=== PATIENT | female | born 1955 | race Caucasian/White ===

== ENCOUNTER → 2019-05-19 | Day surgery (SDC) | payer MEDICARE ==
[2019-05-14 11:42] LABS: BASOPHILS # (AUTO) 0.1 (0.0-0.1); EOSINOPHILS # (AUTO) 0.5 (0.0-0.4); EOSINOPHILS % 4.1 % (0.0-6.0); HEMATOCRIT 37.2 % (34.2-44.1); HEMOGLOBIN 11.6 g/dL (12.0-16.0); LYMPHOCYTES # (AUTO) 2.8 (1.0-3.2); LYMPHOCYTES % 24.8 % (18.0-39.1); MEAN CORPUSCULAR HEMOGLOBIN 28.8 pg (28-32); MEAN CORPUSCULAR HGB CONC 31.2 g/dL (31-35); MEAN CORPUSCULAR VOLUME 92.3 fL (81-99); MONOCYTES # (AUTO) 0.8 (0.2-0.8); MONOCYTES % 7.5 % (4.4-11.3); NEUTROPHILS # (AUTO) 6.9 (2.1-6.9); NEUTROPHILS % 62.2 % (38.7-80.0); PLATELET COUNT 335 x10e3/uL (140-360); RED BLOOD COUNT 4.03 x10e6/uL (3.6-5.1); RED CELL DISTRIBUTION WIDTH 13.5 % (11.7-14.4)
[2019-05-14 11:59] LABS: ANION GAP 19.8 mmol/L (8-16); BLOOD UREA NITROGEN 17 mg/dL (7-26); BUN/CREATININE RATIO 19 (6-25); CALCIUM 10.2 mg/dL (8.4-10.2); CARBON DIOXIDE 21 mmol/L (22-29); CHLORIDE 100 mmol/L (98-107); CREATININE, SERUM 0.89 mg/dL (0.57-1.11); EST GLOMERULAR FILTRATION RATE > 60 ML/MIN (60-); GLUCOSE 203 mg/dL (74-118); POTASSIUM 3.8 mmol/L (3.5-5.1); SODIUM 137 mmol/L (136-145)
--- NOTE | 2019-05-14 12:24 | Diagnostic Imaging Report ---
Chest, 2 views, 05/14/2019. History: Preop, kidney stones. Comparison: 04/07/2019. Findings: The cardiomediastinal silhouette and pulmonary vasculature are within normal limits. The lungs are clear without evidence of consolidation or pleural effusion. Degenerative changes are present within the thoracic spine. There are no acute osseous or soft tissue abnormalities. Impression: No acute cardiopulmonary abnormality. Signed by: Keagan Moran on 05/14/2019 12:21 PM
--- NOTE | 2019-05-14 12:48 | Diagnostic Imaging Report ---
Abdomen, 1 view. History: Preop, kidney stones. Comparison: CT 04/03/2019. Findings: Air is scattered throughout nondilated small and large bowel. Bilateral renal calculi are identified, measuring up to 1.4 cm on the right and 1.7 cm on the left. Bilateral internal ureteral stents are present. The osseous structures are intact. IMPRESSION: Bilateral renal calculi. Signed by: Keagan Moran on 05/14/2019 12:45 PM
[~2019-05-19] MED LIST: AMLODIPINE BESYL5 MG PO; ASPIRIN81 MG; AZO BLADDER CO300 MG PO; BACTRIM DS TAB1 EACH PO; BUPROPION HCL150 MG PO; CEFTRIAXONE SOD 1 GM/NS 50 ML 50 ML IV ONE; CIPRO500 MG PO; CRESTOR10 MG; FENTANYL CITRATE/PF 100MCG/2 ML INJ ONE; FLOMAX0.4 MG PO; LOSARTAN-HCTZ1 EAC1 PO; METFORMIN HCL1000 MG; METOPROLOL TART25 MG PO; NORCO 5-325 TA1 EACH PO; ONDANSETRON HCL INJ 2MG/ML 2ML 2 MG/ML VIAL ONE; OXYBUTYNIN CHLOR5 M1 PO; SERTRALINE HCL50 MG PO; SEVOFLURANE INHAL SOLN 250 ML PEN BTL ONE; TESSALON PERLE100 MG PO; TOUJEO SOL300 UNIT/1 SQ; TRAZODONE HCL50 MG PO; TYLENOL WITH C1 EACH PO; ZITHROMAX500 MG PO
[2019-05-19 09:59] VITALS: BP 155/80
--- NOTE | 2019-05-19 11:22 | Operative Report ---
DATE OF PROCEDURE: 05/19/2019 SURGEON: Jean Hussein MD PREOPERATIVE DIAGNOSIS: Bilateral nephrolithiasis. POSTOPERATIVE DIAGNOSIS: Bilateral nephrolithiasis. OPERATIONS PERFORMED: 1. Staged right-sided extracorporeal shockwave lithotripsy. 2. Supervision of fluoroscopy, no radiologist present. ANESTHESIA: General. COMPLICATIONS: None. CLINICAL SUMMARY: Shannan Lockwood is a 63-year-old woman with bilateral nephrolithiasis. She has bilateral indwelling ureteral stents. She was brought for a staged procedure. She is aware of the risks of bleeding, infection, injury to adjacent structures, need for additional procedures and elected to proceed. OPERATIVE PROCEDURE IN DETAIL: Informed consent was verified. Shannan Lockwood was properly identified, taken to the operating room, and placed on the lithotripsy table in supine position. Anesthesia was uneventfully begun. The patient's right lower pole cluster of nephrolithiasis was localized with biplanar fluoroscopy. A total of 3000 shocks were delivered with fragmentation noted. The patient was then uneventfully reversed from anesthesia and taken to recovery room in stable condition. There were no complications to the procedure. She tolerated the procedure well. PLANS: Plans will be to return the patient to the operating room in several weeks for a left ESWL. The patient eventually, when her stone burden has decreased, will require bilateral ureteroscopy with removal of stent. Once the patient is rendered stent free and stone free, metabolic stone workup will be pursued as well as ongoing stone prevention management. Jean Hussein MD [place]/MODL /[id number]
== END | disposition home or self-care (01) ==
LOC: OR 05:21
PROVIDERS: ATTEND Urology
DX: N20.0 Calculus of kidney (principal); Z96.0 Presence of urogenital implants; E11.9 Type 2 diabetes mellitus without complications; I10 Essential (primary) hypertension; E78.5 Hyperlipidemia, unspecified; Z01.812 Encounter for preprocedural laboratory examination; Z01.818 Encounter for other preprocedural examination; Z79.4 Long term (current) use of insulin; Z79.84 Long term (current) use of oral hypoglycemic drugs
CPT/HCPCS: 36415 ×2; 50590; 71046; 74018; 80048; 82948; 85025; J0696; J2405; J3010

== ENCOUNTER → 2019-06-24 | Day surgery (SDC) | payer MEDICARE ==
[~2019-06-24] MED LIST changes: +B&O 60MG R/S 60 MG SUPP PR ONE; +DEXAMETHASONE SOD PHOS INJ 4 MG/ML VIAL ONE; +GENTAMICIN 80MG/NS 100 ML 200 ML IV ONE; +IOPAMIDOL 300MG/ML 50ML INFUS..BTL IV ONE; +LIDOCAINE HCL 2% LOCAL INJ 5 ML SDV VIAL INJ ONE; +MIDAZOLAM HCL 2 MG/2 ML VIAL ONE; +PROPOFOL IV EMULSION 10 MG/ML 20 ML VIAL ONE
--- NOTE | 2019-06-24 07:41 | Diagnostic Imaging Report ---
EXAM: Abdomen Radiograph 1 View(s) INDICATION: Stent removal preop COMPARISON: Abdominal x-ray 06/09/2019 FINDINGS: No abnormalities in the lower chest. The bilateral internal ureteral stents are unchanged and appear appropriate in position. Moderate volume of stool in the colon. No dilated loops of small bowel. No abnormal soft tissue masses. No pneumoperitoneum. There is a 1 cm left renal calculus. No acute osseous abnormality. Mild degenerative changes in the lumbar spine and pelvis. IMPRESSION: The bilateral internal ureteral stents are unchanged and appear appropriate in position. There is a 1 cm left renal calculus. Moderate colonic stool burden. Signed by: Dilip Briceño DO on 06/24/2019 7:38 AM
[2019-06-24 09:35] VITALS: BP 129/55
--- NOTE | 2019-08-05 04:00 | Operative Report ---
DATE OF PROCEDURE: 06/24/2019 SURGEON: Jean Hussein MD PREOPERATIVE DIAGNOSES: 1. Bilateral nephrolithiasis. 2. Left ureterolithiasis. 3. Hydronephrosis. 4. Indwelling ureteral stents. POSTOPERATIVE DIAGNOSES: 1. Bilateral nephrolithiasis. 2. Left ureterolithiasis. 3. Hydronephrosis. 4. Indwelling ureteral stents. 5. Grade 3 cystocele. 6. Grade 2-3 rectocele. 7. Urethral hypermobility. 8. Atrophic (senile) vaginitis. OPERATION PERFORMED: Note, these were all staged procedures as part of multi-staged and multi-step process in managing the patient's urolithiasis. 1. Cystourethroscopy with removal of bilateral indwelling ureteral stents (separate procedure performed for the diagnosis with stents). 2. Left semirigid ureteroscopy with stone manipulation and extraction (separate procedure performed for the left ureterolithiasis). 3. Left ureteropyeloscopy, holmium laser lithotripsy, stone manipulation, extraction and insertion of stent (separate procedure performed for nephrolithiasis). 4. Cystourethroscopy with manipulation of right nephrolithiasis (separate procedure performed for the right-sided stones). 5. Urological services with supervision and interpretation of ureteroscopy. 6. Cystourethroscopy with insertion of right indwelling ureteral stent (separate procedure performed to relieve the right-sided hydronephrosis). 7. Interpretation of retrograde ureteropyelography. 8. Supervision of fluoroscopy, no radiologist present for more than an hour. 9. Pelvic examination under anesthesia. ANESTHESIA: General. COMPLICATIONS: None. CLINICAL SUMMARY: Shannan Lockwood is a complex 63-year-old woman who presented with massive amount of urolithiasis. She had bilateral stents placed and is brought for management of stones. She is aware of the risks of bleeding, infection, injury to adjacent structures, need for additional procedures and elected to proceed. OPERATIVE PROCEDURE IN DETAIL: Informed consent was verified. Shannan Lockwood was properly identified and taken to the operating room, placed on the cystoscopy table in supine position. Anesthesia was uneventfully begun. The patient was then carefully gently repositioned in the dorsal lithotomy position with all pressure points well padded. Her genitalia were prepared and draped in usual sterile fashion. The cystoscope sheath with obturator in place was atraumatically inserted in the patient's urethra and bladder was drained. Panendoscopy of the bladder revealed a stent emerging from both ureteral orifices. The guidewire was then placed in the right ureter and guided to the level of the patient's kidney. The stent was then grasped, completely removed and discarded. Semi-rigid ureteroscope was then placed alongside the guidewire into the distal right ureter and no stone was encountered. Placed the flexible ureteroscope over the secondary guidewire and guided to the level of the patient's kidney. Numerous stones were identified. These were then manipulated and extracted. Multiple Daniel's plaques were noted. Contrast was injected. The ureteroscope was withdrawn and with cystoscopic and fluoroscopic guidance, a right-sided indwelling ureteral stent was then placed, coiled in the patient's kidney as well as the patient's bladder and the retaining suture was cut short. The guidewire was then placed into the left ureter and guided to the level of the patient's kidney. The stent on the left side was grasped and discarded. A semi-rigid ureteroscope was then passed alongside the guidewire into the left ureter, where we identified the stone. The stone was grasped with Nitinol tipless basket and extracted atraumatically. Secondary guidewire was left in place. The flexible ureteroscope was brought up into the patient's left kidney. We identified a large stone burden. Holmium laser lithotripsy was performed of this very hard stone burden to break it up into multiple smaller fragments, all of which are passable and then with cystoscopic fluoroscopic guidance, we inserted a left-sided indwelling ureteral stent coiled in the patient's kidney as well as the patient's bladder and the retaining suture was cut short. Interpretation of retrograde ureteropyelography contrast was instilled in retrograde fashion bilaterally. Bilateral fullness of the upper collecting systems was identified. It was worse in the left hand side. At the end of the case, the stents were in good position, coiled in the patient's kidneys above the patient's bladder at the end of the case. The patient's bladder was drained. Pelvic examination revealed a grade 3 cystocele, grade 2-3 rectocele. There was atrophic vaginitis and urethral hypermobility. A belladonna opium suppository was placed. The patient was uneventfully reversed from anesthesia and taken to the recovery room in stable condition. There were no complications to the procedure. She tolerated the procedure well. Plans will be to return the patient to the operating room for bilateral ureteroscopies in hopes of making the patient stent free and stone free. MD THOMPSON Thomas/ISRA /[id number]
== END | disposition home or self-care (01) ==
LOC: OR 05:34
PROVIDERS: ATTEND Urology
DX: N20.0 Calculus of kidney (principal); N20.1 Calculus of ureter; N13.30 Unspecified hydronephrosis; N28.89 Other specified disorders of kidney and ureter; Z46.6 Encounter for fitting and adjustment of urinary device; N39.0 Urinary tract infection, site not specified; N81.10 Cystocele, unspecified; N81.6 Rectocele; N36.41 Hypermobility of urethra; N95.2 Postmenopausal atrophic vaginitis; E78.5 Hyperlipidemia, unspecified; I10 Essential (primary) hypertension; E11.9 Type 2 diabetes mellitus without complications; Z79.4 Long term (current) use of insulin; Z79.84 Long term (current) use of oral hypoglycemic drugs
CPT/HCPCS: 36415; 52332; 52352; 52356; 74018; 74420; 82948; 88300; C1766; C1769; C2617; J0696; J1100; J1580; J2001; J2250; J2405; J2704; J3010; Q9967

== ENCOUNTER 2019-07-03 20:01 | Inpatient (IN) | payer MEDICARE ==
[~2019-07-03] VITALS: Ht 172.7 cm; Wt 97.5 kg
[~2019-07-03 20:01] MED LIST changes: -B&O 60MG R/S 60 MG SUPP PR ONE; -BACTRIM DS TAB1 EACH PO; -CEFTRIAXONE SOD 1 GM/NS 50 ML 50 ML IV ONE; -DEXAMETHASONE SOD PHOS INJ 4 MG/ML VIAL ONE; -FENTANYL CITRATE/PF 100MCG/2 ML INJ ONE; -GENTAMICIN 80MG/NS 100 ML 200 ML IV ONE; -IOPAMIDOL 300MG/ML 50ML INFUS..BTL IV ONE; -LIDOCAINE HCL 2% LOCAL INJ 5 ML SDV VIAL INJ ONE; -MIDAZOLAM HCL 2 MG/2 ML VIAL ONE; -ONDANSETRON HCL INJ 2MG/ML 2ML 2 MG/ML VIAL ONE; -PROPOFOL IV EMULSION 10 MG/ML 20 ML VIAL ONE; -SEVOFLURANE INHAL SOLN 250 ML PEN BTL ONE
[2019-07-03] MEDS ORDERED: SODIUM CHLORIDE 0.9% 1000ML 1,000 ML IV STA (20:06)
[2019-07-03 20:44] LABS: BASOPHILS # (AUTO) 0.1 (0.0-0.1); BASOPHILS % 0.5 % (0.0-1.0); EOSINOPHILS # (AUTO) 0.1 (0.0-0.4); EOSINOPHILS % 1.3 % (0.0-6.0); HEMATOCRIT 35.9 % (34.2-44.1); HEMOGLOBIN 11.4 g/dL (12.0-16.0); LYMPHOCYTES # (AUTO) 1.2 (1.0-3.2); LYMPHOCYTES % 12.9 % (18.0-39.1); MEAN CORPUSCULAR HEMOGLOBIN 28.4 pg (28-32); MEAN CORPUSCULAR HGB CONC 31.8 g/dL (31-35); MEAN CORPUSCULAR VOLUME 89.5 fL (81-99); MONOCYTES # (AUTO) 1.1 (0.2-0.8); MONOCYTES % 11.6 % (4.4-11.3); NEUTROPHILS # (AUTO) 6.7 (2.1-6.9); NEUTROPHILS % 73.3 % (38.7-80.0); PLATELET COUNT 252 x10e3/uL (140-360); RED BLOOD COUNT 4.01 x10e6/uL (3.6-5.1); RED CELL DISTRIBUTION WIDTH 13.7 % (11.7-14.4)
[2019-07-03] MEDS ORDERED: IBUPROFEN 600 MG TAB PO STA (21:02)
--- NOTE | 2019-07-03 21:02 | Diagnostic Imaging Report ---
Exam: Abdominal film Clinical History: Fever, Comparison: June 24, 2019 DISCUSSION: Stable bilateral ureteral stents. 8 mm left renal calculi/adjacent calculi. Nonobstructive bowel gas pattern. IMPRESSION: Stable bilateral ureteral stents and left renal calculi Signed by: Dr. Silvio Simpson M.D. on 07/03/2019 8:58 PM
[2019-07-03 21:08] LABS: ALBUMIN 3.5 g/dL (3.5-5.0); ALBUMIN/GLOBULIN RATIO 0.9 (0.8-2.0); ANION GAP 17.9 mmol/L (8-16); CALCIUM 9.8 mg/dL (8.4-10.2); CREATININE, SERUM 1.09 mg/dL (0.57-1.11); MAGNESIUM 1.5 MG/DL (1.3-2.1); POTASSIUM 3.9 mmol/L (3.5-5.1)
[2019-07-03 21:10] LABS: CLARITY,URINE SL CLOUDY (CLEAR); COLOR,URINE ORANGE (YELLOW)
[2019-07-03 21:11] LABS: LEUKOCYTE ESTERASE ,URINE LARGE (NEGATIVE); NITRITE,URINE POSITIVE (NEGATIVE); PROTEIN,URINE DIPSTICK 2+ (NEGATIVE)
[2019-07-03 21:12] LABS: BACTERIA,URINE MODERATE /HPF; BILIRUBIN,URINE SMALL (NEGATIVE); EPITHELIAL CELLS,URINE MODERATE /LPF; KETONES,URINE 1+ (NEGATIVE); WBC,URINE (MAN) 21-50 /HPF (0-5)
[2019-07-03 21:15] LABS: CREATINE KINASE MB 1.4 ng/mL (0-5.0)
[2019-07-03] MEDS ORDERED: CEFTRIAXONE SOD 1 GM/NS 50 ML 50 ML IV ONE (21:15)
[2019-07-03] MEDS ORDERED: INSULIN REGULAR, HUMAN 100 UNIT/1 ML 3ML VIAL IV ONE (21:45)
[2019-07-03] MEDS: MEROPENEM 1GM 100 ML IV SCH (21:47)
[2019-07-03 23:00] VITALS: BP 121/57
[2019-07-04] VITALS (8 sets, daily range): BP systolic 107–154; BP diastolic 48–82
[2019-07-04] MEDS: ACETAMINOPHEN 325 MG TAB PO PRN ×3 (00:02→21:48)
--- NOTE | 2019-07-04 02:28 | NUR ---
H&P cc: flank pain/discomfort with urination; HPI: 63yoF, PCP , flank pain and urinary discomfort, with frequency and nausea. Pt found to have UTI. Pain started 2 days ago. New stents placed B/L urinary system 06/24/19. PMH: HTN, HLD, insomnia, DM2, B/L nephrolithiasis s/p stent s/p removal, PAF, right ureterolithiasis, obstructive uropathy, GAGE, UTI with E.coli and Strep viridans PSHx: urinary stent, hysterectomy, tonsillectomy, cardiac, ASD s/p repair in 1957 Allergies; see emr FH/SH; single; no cigs meds; see MAR ROS: no f/c/s/cp/sob/skin rash/back pain/diziness v/s; revd PE tired appearing anicteric ns1s2 mod bs soft nd; B/L flank tenderness no e/t skin dry flat affect a&ox3; jimenez labs/meds revd A/P; 63yoF Acute pyelonephritis UTI Sepsis due to UTI HTN HLD DM2 Ureterolithiasis GAGE PAF PLAN IVF; IV abx; f/u cx; hba1c/lipds./ADA diet scd; pepcid Ruiz Butts MD, PhD.
[2019-07-04] MEDS ORDERED: SENNOSIDES 8.6 MG TAB PO PRN (02:30)
[2019-07-04] MEDS ORDERED: ACETAMINOPHEN 325 MG TAB PO PRN (02:30)
[2019-07-04] MEDS ORDERED: METOPROLOL TARTRATE INJ 1 MG/ML VIAL IV PRN (02:45)
[2019-07-04] MEDS: ZOLPIDEM TARTRATE 5 MG TAB PO PRN ×2 (03:00→23:28)
[2019-07-04] MEDS ORDERED: SODIUM CHLORIDE 0.9% 250ML 250 ML ONE (05:45)
[2019-07-04 06:01] LABS: BASOPHILS # (AUTO) 0.1 (0.0-0.1); BASOPHILS % 0.6 % (0.0-1.0); EOSINOPHILS # (AUTO) 0.2 (0.0-0.4); EOSINOPHILS % 2.3 % (0.0-6.0); HEMATOCRIT 31.2 % (34.2-44.1); HEMOGLOBIN 10.1 g/dL (12.0-16.0); LYMPHOCYTES # (AUTO) 1.9 (1.0-3.2); LYMPHOCYTES % 21.3 % (18.0-39.1); MEAN CORPUSCULAR HEMOGLOBIN 28.9 pg (28-32); MEAN CORPUSCULAR HGB CONC 32.4 g/dL (31-35); MEAN CORPUSCULAR VOLUME 89.1 fL (81-99); MONOCYTES # (AUTO) 1.7 (0.2-0.8); MONOCYTES % 18.7 % (4.4-11.3); NEUTROPHILS # (AUTO) 5.1 (2.1-6.9); NEUTROPHILS % 56.7 % (38.7-80.0); PLATELET COUNT 218 x10e3/uL (140-360); RED CELL DISTRIBUTION WIDTH 13.8 % (11.7-14.4)
[2019-07-04] MEDS: MEROPENEM 1GM 100 ML IV SCH ×3 (06:04→21:03)
[2019-07-04] MEDS: ONDANSETRON HCL INJ 2MG/ML 2ML 2 MG/ML VIAL IV PRN ×3 (06:05→21:32)
[2019-07-04] MEDS: MORPHINE SULFATE 2 MG/ML SYR 1ML IV PRN ×4 (06:05→21:32)
[2019-07-04 06:19] LABS: ALANINE AMINOTRANSFERASE 33 IU/L (0-55); ALBUMIN 2.9 g/dL (3.5-5.0); ALBUMIN/GLOBULIN RATIO 0.9 (0.8-2.0); ALKALINE PHOSPHATASE 81 IU/L (40-150); ANION GAP 13.4 mmol/L (8-16); BLOOD UREA NITROGEN 12 mg/dL (7-26); BUN/CREATININE RATIO 15 (6-25); CALCIUM 9.4 mg/dL (8.4-10.2); CARBON DIOXIDE 24 mmol/L (22-29); CHLORIDE 106 mmol/L (98-107); CREATININE, SERUM 0.79 mg/dL (0.57-1.11); EST GLOMERULAR FILTRATION RATE > 60 ML/MIN (60-); GLUCOSE 157 mg/dL (74-118); POTASSIUM 3.4 mmol/L (3.5-5.1); SODIUM 140 mmol/L (136-145)
[2019-07-04 06:41] LABS: CHOL/HDL RATIO 2.9 (3.0-3.6)
--- NOTE | 2019-07-04 07:00 | NUR ---
BEDSIDE SHIFT REPORT RECEIVED FROM THE PHARMACY INFORMATICS SPECIALIST RN. EDUCATED PT ABOUT FALL PRECAUTIONS. CALL LIGHT WITH IN EASY REACH. INSTRUCTED PT TO USE CALL LIGHT FOR ALL THE NEEDS. PT VERBALIZED UNDERSTANDING. BED IS LOW AND LOCKED. SIDE RAILS X2. PT DENIES NEEDS AT THIS TIME.
--- NOTE | 2019-07-04 09:00 | NUR ---
PAGED DR. HAGER REGARDING PT BLOOD SUGAR 138. WAITING FOR THE RESPONSE FROM THE
[2019-07-04] MEDS: OXYBUTYNIN CHLORIDE XL 5 MG TAB PO SCH ×2 (09:13→16:27)
[2019-07-04] MEDS: FAMOTIDINE 20 MG/2 ML VIAL IV SCH ×2 (09:13→16:27)
[2019-07-04] MEDS: METOPROLOL TARTRATE 25 MG TAB PO SCH ×2 (09:13→16:27)
[2019-07-04] MEDS ORDERED: DEXTROSE 50% SYRINGE 50 ML IV PRN (11:15)
[2019-07-04] MEDS: INSULIN REGULAR, HUMAN 100 UNIT/1 ML 3ML VIAL SQ SCH ×3 (12:25→21:10)
[2019-07-04] MEDS: SIMVASTATIN 20 MG TAB PO SCH (16:28)
--- NOTE | 2019-07-04 16:47 | NUR ---
PT TEMPERATURE 102.7. PAGED DR. HAGER AND NOTIFIED. WAITING FOR THE RESPONSE.
--- NOTE | 2019-07-04 19:00 | NUR ---
BEDSIDE SHIFT REPORT GIVEN TO THE RN BONE MARROW TRANSPLANT RN. PT DENIED FURTHER NEEDS.
[2019-07-04] MEDS: AMLODIPINE BESYLATE 5 MG TAB PO SCH (19:59)
[2019-07-05] VITALS (11 sets, daily range): BP systolic 119–159; BP diastolic 57–83
[2019-07-05] MEDS: MEROPENEM 1GM 100 ML IV SCH ×3 (05:17→21:05)
--- NOTE | 2019-07-05 08:08 | NUR ---
IM- progress note O/N: see below ROS: no f/c/s/cp/sob/skin rash/back pain/diziness v/s; revd PE tired appearing anicteric ns1s2 mod bs soft nd; B/L flank tenderness no e/t skin dry flat affect a&ox3; jimenez labs/meds revd A/P; 63yoF Acute pyelonephritis UTI Sepsis due to UTI HTN HLD DM2 Ureterolithiasis GAGE PAF PLAN IVF; IV abx; f/u cx; hba1c/lipds./ADA diet scd; pepcid 2/2 Hba1c/LDL 7.8/57; GNR UTI- f/u ; check K level; remains on IV merrem. f/u Dr.Hampel Ruiz Butts MD, PhD.
[2019-07-05] MEDS: OXYBUTYNIN CHLORIDE XL 5 MG TAB PO SCH ×2 (08:35→16:59)
[2019-07-05] MEDS: METOPROLOL TARTRATE 25 MG TAB PO SCH ×2 (08:36→17:00)
[2019-07-05] MEDS: INSULIN REGULAR, HUMAN 100 UNIT/1 ML 3ML VIAL SQ SCH ×4 (10:11→21:30)
[2019-07-05] MEDS: FAMOTIDINE 20 MG/2 ML VIAL IV SCH (11:14)
[2019-07-05] MEDS ORDERED: MAGNESIUM HYDROXIDE 30 ML UDC PO PRN (12:15)
[2019-07-05] MEDS: SIMVASTATIN 20 MG TAB PO SCH (17:00)
[2019-07-05] MEDS: AMLODIPINE BESYLATE 5 MG TAB PO SCH (21:05)
[2019-07-05] MEDS: ZOLPIDEM TARTRATE 5 MG TAB PO PRN (22:41)
[2019-07-06] VITALS (9 sets, daily range): BP systolic 142–171; BP diastolic 62–81
[2019-07-06] MEDS: FAMOTIDINE 20 MG/2 ML VIAL IV SCH ×2 (05:38→11:09)
[2019-07-06] MEDS: MEROPENEM 1GM 100 ML IV SCH ×3 (05:38→21:48)
[2019-07-06] MEDS: ACETAMINOPHEN 325 MG TAB PO PRN (05:52)
--- NOTE | 2019-07-06 06:37 | NUR ---
IM- progress note O/N: see below ROS: no f/c/s/cp/sob/skin rash/back pain/diziness v/s; revd PE tired appearing anicteric ns1s2 mod bs soft nd; B/L flank tenderness no e/t skin dry flat affect a&ox3; jimenez labs/meds revd A/P; 63yoF Acute pyelonephritis ESBL E.coli UTI Sepsis due to UTI HTN HLD DM2 Ureterolithiasis GAGE PAF PLAN IVF; IV abx; f/u cx; hba1c/lipds./ADA diet scd; pepcid 2/2 Hba1c/LDL 7.8/57; GNR UTI- f/u ; check K level; remains on IV merrem. f/u 2-3 ESBL E.coli UTI- merrem D#3/ in complicated UTI with ureterolithiasis and recent urinary manipulation; SNF eval; PT consult; will need line; ID eval. Ruiz Butts MD, PhD.
--- NOTE | 2019-07-06 07:00 | NUR ---
BEDSIDE SHIFT REPORT RECEIVED FROM THE PREVIOUS SHIFT RN. EDUCATED PATIENT ABOUT FALL PRECAUTIONS. CALL LIGHT IN EASY REACH. INSTRUCTED PATIENT TO USE CALL LIGHT FOR ANY NEEDS. PATIENT VERBALIZE UNDERSTANDING. BED IS LOW, WHEELS LOCKED, SIDE RAILS UP X2 FOR SAFETY. PT DENIES NEEDS AT THIS TIME IS IN ISOLATION FOR ESBL OF URINE. AWAITING PICC LINE FOR [facility]
[2019-07-06] MEDS: OXYBUTYNIN CHLORIDE XL 5 MG TAB PO SCH ×2 (09:00→16:52)
[2019-07-06] MEDS: METOPROLOL TARTRATE 25 MG TAB PO SCH ×2 (09:00→16:52)
[2019-07-06] MEDS: INSULIN REGULAR, HUMAN 100 UNIT/1 ML 3ML VIAL SQ SCH ×4 (10:16→21:40)
--- NOTE | 2019-07-06 11:27 | NUR ---
GETTING PICC LINE AT THIS TIME AFTER OKAY TO USE ARM FOR PICC FROM DR. WREN PHONE ORDER
--- NOTE | 2019-07-06 11:39 | NUR ---
PT CHOSE [facility], FILED IN CHART AND WILL COMPLETE PASRR RTF AND FAX CLINICALS TO FACILITY
--- NOTE | 2019-07-06 12:07 | Diagnostic Imaging Report ---
EXAMINATION: CHEST XRAY LINE PLACEMENT INDICATION: Line placement COMPARISON: Chest radiograph 05/14/2019 FINDINGS: LINES/TUBES:Interval placement of right PICC line terminating in the SVC. LUNGS:The lungs are moderately inflated. There is perihilar fullness and indistinctness of the pulmonary vasculature. PLEURA:No pleural effusion or pneumothorax. MEDIASTINUM:The cardiomediastinal silhouette appears unchanged in size and shape. Atherosclerotic calcifications of the thoracic aorta. BONES/SOFT TISSUES:No acute osseous injury. ABDOMEN:No free air under the diaphragm. IMPRESSION: Right PICC line terminates in the superior vena cava. Central pulmonary vascular congestion without becky pulmonary edema. Signed by: Megha Mann MD on 07/06/2019 12:04 PM
--- NOTE | 2019-07-06 15:21 | NUR ---
EDUCATED ABOUT IMM, SIGNED, FILED IN CHART, WITH COPY LEFT WITH FAMILY AT BEDSIDE.
[2019-07-06] MEDS: SIMVASTATIN 20 MG TAB PO SCH (16:52)
--- NOTE | 2019-07-06 20:04 | NUR ---
RECEIVED REPORT FROM 7AM NURSE, ROUNDS DONE. CALL LIGHT REMAIN IN REACH. WILL CONTINUE TO MONITOR.
--- NOTE | 2019-07-06 21:16 | Consultation ---
DATE OF CONSULTATION: 07/06/2019 LOCATION: [facility]. REASON FOR CONSULTATION: To evaluate and assist in treating the patient for a complicated genitourinary tract infection. Information is gathered from the current medical record. I interviewed the patient at the bedside. HISTORY OF PRESENT ILLNESS: She is a 63-year-old woman with history of diabetes mellitus, hypertension, hyperlipidemia, insomnia, who has had bilateral nephrolithiasis. She tells me that she has had several lithotripsy procedures. About 2 weeks ago, she had ureteral stenting and removal of the stent. She reports she subsequently developed fevers with dysuria and frequency as well as nausea, for which she was admitted to the hospital for evaluation and treatment. At presentation, she had a temperature of 100 degrees Fahrenheit on July 03, 2019. On July 04, she had temperatures up to 102.5 degrees Fahrenheit, pulse rate at presentation was 92, respiratory rate 18. Her CBC showed a white count of 9.1. Her serum creatinine was 1.0. A urinalysis showed a cloudy urine with proteinuria, positive nitrite, positive esterase, 1-50 wbc's, 11-20 rbc's, moderate bacteria and epithelial cells. Her urine culture on July 03, 2019, grew E coli, ESBL positive strain, it is resistant to fluoroquinolones and sensitive to Zosyn, amikacin, Bactrim, gentamicin, and carbapenems. Her blood cultures from July 03 showed no growth. Plain film of the abdomen on July 03 showed stable bilateral ureteral stents and left renal calculi. She has been receiving treatment with meropenem started on July 03. MEDICAL HISTORY: As reported above. She has had hysterectomy and tonsillectomy. She has had cardiac defects repaired. She has no history of intrinsic chronic kidney disease, liver disease, or CVA. SOCIAL HISTORY: She does not smoke. She does not drink. She denies other forms of recreational drug use. FAMILY HISTORY: Positive for diabetes and hypertension. ALLERGIES: SHE HAS NO KNOWN ALLERGIES. MEDICATIONS: She is on treatment with meropenem. The rest of her medications are per the medication administration report. REVIEW OF SYSTEMS: The patient is alert and responsive. She is coherent. She appears nontoxic and is currently in no acute distress. She has no headache or neck stiffness. No sore throat. No visual or auditory complaints. She has some abdominal discomfort. No frequency or dysuria at present. No diarrhea. PHYSICAL EXAMINATION: GENERAL: She is an adult woman. She is alert, responsive, coherent. She appears nontoxic and is in no acute distress. VITAL SIGNS: In the past 24 hours, maximum temperature recorded is 98.3 degrees Fahrenheit. She is hemodynamically stable. HEENT: She has no pallor. There is no icterus. No oropharyngeal lesions. NECK: Supple. CHEST: Symmetric. LUNGS: Clear. HEART: Sounds are regular. No significant murmur. ABDOMEN: Full, soft, nontender with normal bowel sounds. EXTREMITIES: There is no acute erythema of her lower extremities. LABORATORY DATA: Her white count on July 04 is 9.0, hemoglobin 10.1, platelet count 218. Differentials on the white count appear unremarkable. Her serum creatinine is 0.7 on July 04. Urine and blood cultures are as reported above. IMPRESSION: This 63-year-old woman is a diabetic with history of nephrolithiasis and ureteral stent placements. She presented with signs and symptoms consistent with sepsis present on admission due to urinary tract infection due to multidrug resistant/ESBL positive strain of E coli. The isolate is sensitive to Bactrim. It is also sensitive to nitrofurantoin. She is currently on treatment with meropenem. I suggest continue treatment with meropenem while the patient is in hospital. Anticipate 14 days of antibiotic treatment in light of the patient with nephrolithiasis and ureteral stents with a urinary tract infection. If discharge on oral antibiotics is contemplated, she could go home on Bactrim DS 1 p.o. b.i.d. to complete a total 14 days of treatment counting from the date meropenem was started in hospital. I have discussed the findings and treatment with the patient at the bedside. I will discuss the patient with Dr. Butts whom I thank for the consult and opportunity to participate in the patient's care. MD PAN Cotton/ISRA /[id number]
[2019-07-06] MEDS: AMLODIPINE BESYLATE 5 MG TAB PO SCH (21:47)
[2019-07-07] VITALS (8 sets, daily range): BP systolic 143–175; BP diastolic 69–78
[2019-07-07] MEDS: FAMOTIDINE 20 MG/2 ML VIAL IV SCH ×2 (04:38→11:52)
[2019-07-07] MEDS: MEROPENEM 1GM 100 ML IV SCH ×3 (05:25→20:59)
--- NOTE | 2019-07-07 06:24 | NUR ---
IM- progress note O/N: see below ROS: no f/c/s/cp/sob/skin rash/back pain/diziness v/s; revd PE tired appearing anicteric ns1s2 mod bs soft nd; B/L flank tenderness no e/t skin dry flat affect a&ox3; jimenez labs/meds revd A/P; 63yoF Acute pyelonephritis ESBL E.coli UTI Sepsis due to UTI HTN HLD DM2 Ureterolithiasis GAGE PAF PLAN IVF; IV abx; f/u cx; hba1c/lipds./ADA diet scd; pepcid 2/2 Hba1c/LDL 7.8/57; GNR UTI- f/u ; check K level; remains on IV merrem. f/u 2-3 ESBL E.coli UTI- merrem D#3/ in complicated UTI with ureterolithiasis and recent urinary manipulation; SNF eval; PT consult; will need line; ID eval. 2/ to snf when approved; Ruiz Butts MD, PhD.
--- NOTE | 2019-07-07 07:00 | NUR ---
bedside rounds done. pt is alert resting in bed, no s/s of distress. call light within reach and instructed pt to call RN for help.
--- NOTE | 2019-07-07 07:29 | NUR ---
REPORT GIVEN TO 7AM NURSE, ROUNDS DONE.
[2019-07-07] MEDS: INSULIN REGULAR, HUMAN 100 UNIT/1 ML 3ML VIAL SQ SCH ×4 (08:00→21:15)
[2019-07-07] MEDS: OXYBUTYNIN CHLORIDE XL 5 MG TAB PO SCH ×2 (08:23→16:33)
[2019-07-07] MEDS: METOPROLOL TARTRATE 25 MG TAB PO SCH ×2 (08:23→16:34)
--- NOTE | 2019-07-07 08:52 | NUR ---
MESSAGED FACILITY REP TO SEE ABOUT STATUS, STILL PENDING
[2019-07-07] MEDS: SIMVASTATIN 20 MG TAB PO SCH (16:34)
[2019-07-07] MEDS: NYSTATIN SUSPENSION 5 ML UDC PO SCH (20:59)
[2019-07-07] MEDS: ACETAMINOPHEN 325 MG TAB PO PRN (20:59)
[2019-07-07] MEDS: ZOLPIDEM TARTRATE 5 MG TAB PO PRN (20:59)
[2019-07-07] MEDS: AMLODIPINE BESYLATE 5 MG TAB PO SCH (20:59)
[2019-07-07] MEDS ORDERED: SODIUM CHLORIDE 0.9% 250ML 250 ML ONE (21:40)
--- NOTE | 2019-07-07 22:35 | Progress Note ---
DATE: 07/07/2019 SUBJECTIVE: The patient is alert and responsive. She is ambulating. She is complaining of some sore throat and some sneezing. She denies coming in contact with anyone with flu symptoms. No nausea, vomiting, or diarrhea. No other systemic complaints reported. OBJECTIVE: VITAL SIGNS: In the past 24 hours, maximum temperature was up to 98.4 degrees Fahrenheit. She is hemodynamically stable. HEENT: She has no pallor. There is no icterus. No oropharyngeal lesions. NECK: Supple. CHEST: Symmetric. LUNGS: Clear. HEART: Sounds are regular without a significant murmur. ABDOMEN: Full, soft, nontender with normal bowel sounds. No CVA tenderness currently. EXTREMITIES: No acute erythema of lower extremities. LABORATORY DATA: Her white count on July 04 was 9.0, hemoglobin 10.1, platelet count 218. Serum creatinine 0.7. Blood cultures from July 03 showed no growth. Urine culture, July 03, 2019, grew E coli, ESBL positive strain sensitive to Bactrim and Macrodantin. IMPRESSION: She has a complicated genitourinary tract infection. She has stents. She has a history of nephrolithiasis. Urine cultures grew multidrug-resistant E coli, ESBL positive strain. I suggest continue meropenem while the patient is in the hospital. If she remains afebrile and hemodynamically stable from Infectious Disease point, she can be discharged any time now on Bactrim DS 1 p.o. b.i.d. to complete a total of 14 days of treatment counting from the date meropenem was started. I have discussed the findings and plan with the patient at the bedside. MD PAN Cotton/ISRA /[id number]
[2019-07-08] VITALS: BP 157/75
[2019-07-08 04:00] VITALS: BP 155/90
[2019-07-08] MEDS: MEROPENEM 1GM 100 ML IV SCH (05:37)
[2019-07-08 05:40] LABS: HEMOGLOBIN 9.4 g/dL (12.0-16.0); MEAN CORPUSCULAR HEMOGLOBIN 28.7 pg (28-32); MEAN CORPUSCULAR HGB CONC 31.3 g/dL (31-35); MEAN CORPUSCULAR VOLUME 91.5 fL (81-99); PLATELET COUNT 283 x10e3/uL (140-360); RED BLOOD COUNT 3.28 x10e6/uL (3.6-5.1); RED CELL DISTRIBUTION WIDTH 13.5 % (11.7-14.4)
[2019-07-08 05:57] LABS: ANION GAP 16.3 mmol/L (8-16); CALCIUM 9.4 mg/dL (8.4-10.2); CREATININE, SERUM 1.07 mg/dL (0.57-1.11); POTASSIUM 4.3 mmol/L (3.5-5.1)
[2019-07-08] MEDS ORDERED: BACTRIM DS TAB1 EACH PO (06:37)
--- NOTE | 2019-07-08 06:39 | NUR ---
D/C summary Principal Dx: Acute pyelonephritis ESBL E.coli UTI- Complicated Sepsis due to UTI secondary Dx: HTN HLD DM2 Ureterolithiasis GAGE PAF PLAN IVF; IV abx; f/u cx; hba1c/lipds./ADA diet scd; pepcid 2/2 Hba1c/LDL 7.8/57; GNR UTI- f/u ; check K level; remains on IV merrem. f/u 2-3 ESBL E.coli UTI- merrem D#3/ in complicated UTI with ureterolithiasis and recent urinary manipulation; SNF eval; PT consult; will need line; ID eval. 07/07 to snf when approved; Repeat cx negative; so d/c home on bactrim for remaining days d/c home f/u pcp 1 week and urology as directed stable d/c>35mins Ruiz Butts MD, PhD.
[2019-07-08] MEDS: INSULIN GLARGINE 100 UNITS/ML VIAL SQ SCH ×2 (06:45→09:00)
--- NOTE | 2019-07-08 07:00 | NUR ---
received bedside report. pt is alert sitting up in bed, no s/s of distress. call light within reach and instructed pt to call RN for help. Dr. Butts made rounds and is discharging the patient home on oral Bactrim. RN instructed to notify Dr. Price
[2019-07-08] MEDS ORDERED: FAMOTIDINE 20 MG TAB PO SCH (07:30)
[2019-07-08] MEDS: INSULIN REGULAR, HUMAN 100 UNIT/1 ML 3ML VIAL SQ SCH (07:30)
[2019-07-08 07:44] VITALS: BP 171/77
--- NOTE | 2019-07-08 08:08 | NUR ---
DISCHARGED PT HOME, CALLED FACILITY AND CANCELLED SNF.
[2019-07-08] MEDS: METOPROLOL TARTRATE 25 MG TAB PO SCH (08:43)
[2019-07-08] MEDS: OXYBUTYNIN CHLORIDE XL 5 MG TAB PO SCH (08:43)
[2019-07-08] MEDS: NYSTATIN SUSPENSION 5 ML UDC PO SCH (08:45)
[2019-07-08 09:01] VITALS: BP 171/77
--- NOTE | 2019-07-08 09:06 | NUR ---
spoke with Swati at Dr. Price's office, waiting for callback from doctor
[2019-07-08] MEDS ORDERED: ONDANSETRON HCL 4 MG ORAL DISINTEGRATING TAB PO PRN (09:45)
[2019-07-08 11:29] VITALS: BP 174/72
--- NOTE | 2019-07-08 18:35 | Progress Note ---
DATE: 07/08/2019 SUBJECTIVE: The patient is fairly stable. She is in no acute distress. She is not coughing. No dyspnea at rest. No vomiting. No diarrhea. No other systemic complaints reported. OBJECTIVE: VITAL SIGNS: In the past 24 hours, she had temperatures up to 98.5 degrees Fahrenheit. She is hemodynamically stable. HEENT: She has no pallor. There is no icterus. No oropharyngeal lesions. NECK: Supple. CHEST: Symmetric. LUNGS: Clear. HEART: Sounds are regular. There is no new murmur. ABDOMEN: Soft, nontender with normal bowel sounds. EXTREMITIES: There is no acute erythema of lower extremities. LABORATORY DATA: Her white count is 7.5, hemoglobin 9.4, platelet count 283. Serum creatinine is 1.0. There are no new positive culture reports. IMPRESSION: She is afebrile. She has no leukocytosis. She is on treatment for urinary tract infection due to extended-spectrum beta-lactamase strain of Escherichia coli. I suggest continue current management. Please see Infectious Disease notes of July 07, 2019, for antibiotic suggestions. MD PAN Cotton/FATIMAHL /[id number]
== END 2019-07-08 12:45 | disposition home or self-care (01) | DRG 872 ==
LOC: ER 20:01 → ERHOLD 21:40 → MED/SURG2 23:32
PROVIDERS: ADMIT Internal Medicine; ATTEND Internal Medicine
PROC: 02HV33Z Insertion of Infusion Device into Superior Vena Cava, Percutaneous Approach (ICD-10-PCS; principal; 2019-07-06)
DX: A41.51 Sepsis due to Escherichia coli [E. coli] (principal); N20.1 Calculus of ureter; N17.9 Acute kidney failure, unspecified; N10 Acute pyelonephritis; Z16.12 Extended spectrum beta lactamase (ESBL) resistance; E11.9 Type 2 diabetes mellitus without complications; E78.5 Hyperlipidemia, unspecified; I48.91 Unspecified atrial fibrillation; Z79.01 Long term (current) use of anticoagulants; I10 Essential (primary) hypertension; G47.00 Insomnia, unspecified
CPT/HCPCS: 36415; 36569; 74018; 80048; 80053; 80061; 81001; 82550; 82553; 82948; 83036; 83605; 83735; 84132; 84484; 85007; 85025; 85027; 87040; 87086; 87186; 96360; 96372; 99284; J0696; J1815; J1817; J2270; J2405; J7030; J7050

== ENCOUNTER → 2019-07-20 | Day surgery (SDC) | payer MEDICARE ==
[~2019-07-20] MED LIST changes: +B&O 60MG R/S 60 MG SUPP PR ONE; +BACTRIM DS TAB1 EACH PO; +DEXAMETHASONE SOD PHOS INJ 4 MG/ML VIAL ONE; +EPHEDRINE SULFATE INJ 50 MG/ML VIAL ONE; +FENTANYL CITRATE/PF 100MCG/2 ML INJ ONE; +INSULIN REGULAR, HUMAN 100 UNIT/1 ML 3ML VIAL ONE; +IOPAMIDOL 300MG/ML 50ML INFUS..BTL IV ONE; +LIDOCAINE HCL 2% LOCAL INJ 5 ML SDV VIAL INJ ONE; +ONDANSETRON HCL INJ 2MG/ML 2ML 2 MG/ML VIAL ONE; +PIPER-TAZ 3.375 GM 50 ML ONE; +PROPOFOL IV EMULSION 10 MG/ML 20 ML VIAL ONE; +SEVOFLURANE INHAL SOLN 250 ML PEN BTL ONE
[2019-07-20 06:21] LABS: BASOPHILS # (AUTO) 0.1 (0.0-0.1); EOSINOPHILS # (AUTO) 0.6 (0.0-0.4); HEMATOCRIT 34.9 % (34.2-44.1); HEMOGLOBIN 11.2 g/dL (12.0-16.0); LYMPHOCYTES # (AUTO) 2.4 (1.0-3.2); MEAN CORPUSCULAR HEMOGLOBIN 29.3 pg (28-32); MEAN CORPUSCULAR HGB CONC 32.1 g/dL (31-35); MEAN CORPUSCULAR VOLUME 91.4 fL (81-99); MONOCYTES # (AUTO) 0.7 (0.2-0.8); MONOCYTES % 7.3 % (4.4-11.3); NEUTROPHILS # (AUTO) 5.4 (2.1-6.9); NEUTROPHILS % 59.5 % (38.7-80.0); PLATELET COUNT 357 x10e3/uL (140-360); RED BLOOD COUNT 3.82 x10e6/uL (3.6-5.1); RED CELL DISTRIBUTION WIDTH 13.8 % (11.7-14.4)
[2019-07-20 06:50] LABS: ANION GAP 16.1 mmol/L (8-16); CALCIUM 10.1 mg/dL (8.4-10.2); CREATININE, SERUM 1.25 mg/dL (0.57-1.11); POTASSIUM 4.1 mmol/L (3.5-5.1)
--- NOTE | 2019-07-20 07:21 | Diagnostic Imaging Report ---
EXAM: Abdomen Radiograph 1 View INDICATION: Renal calculi, stents COMPARISON: Abdominal radiograph 06/24/2019 None FINDINGS: No abnormalities in the lower chest. Bilateral internal nephroureteral catheters appear appropriate in position. There are two 7-mm calculi which project in the inferior left renal pole. Pelvic phleboliths. Normal volume of stool in the colon. No dilated loops of small bowel. No abnormal soft tissue masses. No pneumoperitoneum. No acute osseous abnormality. Mild degenerative changes in the lumbar spine, hips and pelvis. IMPRESSION: Bilateral internal nephroureteral catheters appear appropriate in position. There are two 7-mm calculi which project in the inferior left renal pole. Signed by: Dilip Briceño DO on 07/20/2019 7:19 AM
[2019-07-20 08:40] VITALS: BP 136/61
--- NOTE | 2019-08-25 23:42 | Operative Report ---
DATE OF PROCEDURE: 07/20/2019 SURGEON: Jean Hussein MD PREOPERATIVE DIAGNOSES: 1. Bilateral nephrolithiasis. 2. Bilateral indwelling ureteral stents. POSTOPERATIVE DIAGNOSES: 1. Bilateral nephrolithiasis. 2. Bilateral indwelling ureteral stents. 3. Grade 3 cystocele. 4. Grade 4 rectocele. 5. Urethral hypermobility. 6. Atrophic (senile) vaginitis. 7. Grade 2 vaginal cuff prolapse. OPERATIONS PERFORMED: Note, these were all staged procedures as part of multi-staged and multi-step process in managing the patient's urolithiasis. 1. Cystourethroscopy with complicated removal of bilateral indwelling ureteral stents (separate procedure performed for the diagnosis with stents). 2. Complicated left ureteral pyeloscopy with manipulation and extraction of more than 6 kidney stones (separate procedure performed for the left-sided stones). 3. Right ureteroscopy with stone manipulation and extraction (separate procedure performed for the 3 smaller kidney stones from the right kidney). 4. Urological services with supervision and interpretation of ureteroscopy. 5. Interpretation of retrograde ureteropyelography. 6. Supervision of fluoroscopy, no radiologist present. 7. Pelvic examination under anesthesia. ANESTHESIA: General. COMPLICATIONS: None. CLINICAL SUMMARY: Shannan Lockwood is a 64-year-old woman who had severe bilateral nephrolithiasis. She underwent ureteral stenting. She underwent multiple ESWL procedures. She is brought to the operating room in hopes of rendering the patient stent free and stone free. She is aware of the risks of bleeding, infection, injury to adjacent structures, need for additional procedures and elected to proceed. She also knows that she needs to follow up on an indefinite long-term basis for stone prevention and metabolic stone workup. OPERATIVE PROCEDURE IN DETAIL: Informed consent was verified. Shannan Lockwood was properly identified, taken to the operating room, placed on the cystoscopy table in supine position. Anesthesia was uneventfully begun. The patient was then carefully gently repositioned in the dorsal lithotomy position with all pressure points well padded. Her genitalia were prepared and draped in usual sterile fashion. The cystoscope sheath with obturator in place was atraumatically inserted into the patient's urethra, and the bladder was drained. Panendoscopy revealed no suspicious mucosal lesions. There were no tumors and no stones. Some trabeculation was noted, and the patient had stents emerging from both ureteral orifices. The guidewire was then placed in the right ureter and guided to the level of the patient's kidney. The stent was then grasped, completely removed and discarded. Semi-rigid ureteroscope was then placed alongside the guidewire into the distal right ureter. No stones, no strictures, no suspicious lesions were encountered. Contrast was injected. Flexible ureteroscope was then placed over the guidewire and guided to the level of the patient's kidney. Panendoscopy revealed three stones that were large enough to grasp. Stone was grasped with Nitinol tipless basket and extracted atraumatically. This was repeated two additional times to remove a total of three stones from the right kidney. We then replaced the ureteroscope one last time of the right kidney. Panendoscopy revealed only fine sand. This was irrigated to loosen it from the mucosa, but no graftable stones remained in the upper collecting system in the right hand side. The ureter was examined upon exiting, and it was free of stones, strictures, and tumors. An identical sequence of maneuvers was performed on the left hand side. Left hand side, there were more than six larger stones. These were all grasped with Nitinol tipless basket and extracted. The sand was left on the left hand side as well, but it was irrigated free of the mucosa so that it may pass. The ureter was unremarkable on left hand side as well. Interpretation of retrograde ureteropyelography contrast was instilled in retrograde fashion bilaterally. The severe hydronephrosis that was present previously has now resolved with long-term stenting. It was difficult to discern any filling defects on the retrograde studies performed. Nevertheless, there was no extravasation. Unobstructed drainage was observed bilaterally fluoroscopically. The patient's bladder was drained and cystoscope was withdrawn. Pelvic examination revealed a grade 3 cystocele, grade 4 rectocele. There was urethral hypermobility, atrophic vaginitis, and grade 2 vaginal cuff prolapse. No abnormal palpable pelvic masses were identified. There were no suspicious mucosal lesions. The patient was then uneventfully reversed from anesthesia, taken to recovery room in stable condition. There were no complications to the procedure. She tolerated the procedure well. Plans will be to have the patient undergo metabolic stone workup including 24-hour urine for kidney stone risk profile. The patient will also need to follow up at a later time for urodynamic study to evaluate her voiding function in light of her pelvic organ prolapse. MD THOMPSON Thomas/ISRA /[id number] cc: Jean Hussein MD
== END | disposition home or self-care (01) ==
LOC: OR 05:40
PROVIDERS: ATTEND Urology
DX: N20.0 Calculus of kidney (principal); Z46.6 Encounter for fitting and adjustment of urinary device; N32.89 Other specified disorders of bladder; N81.10 Cystocele, unspecified; N81.6 Rectocele; N36.41 Hypermobility of urethra; N95.2 Postmenopausal atrophic vaginitis; E11.9 Type 2 diabetes mellitus without complications; I10 Essential (primary) hypertension; E78.5 Hyperlipidemia, unspecified; Z79.4 Long term (current) use of insulin
CPT/HCPCS: 36415; 74018; 74420; 80048; 82948; 85025; 88300; C1766; C1769; J1100; J1817; J2001; J2405; J2543; J3010

== ENCOUNTER → 2019-11-19 | Outpatient (CLI) | payer MEDICARE ==
[~2019-11-19] MED LIST changes: -B&O 60MG R/S 60 MG SUPP PR ONE; -DEXAMETHASONE SOD PHOS INJ 4 MG/ML VIAL ONE; -EPHEDRINE SULFATE INJ 50 MG/ML VIAL ONE; -FENTANYL CITRATE/PF 100MCG/2 ML INJ ONE; -INSULIN REGULAR, HUMAN 100 UNIT/1 ML 3ML VIAL ONE; -IOPAMIDOL 300MG/ML 50ML INFUS..BTL IV ONE; -LIDOCAINE HCL 2% LOCAL INJ 5 ML SDV VIAL INJ ONE; -ONDANSETRON HCL INJ 2MG/ML 2ML 2 MG/ML VIAL ONE; -PIPER-TAZ 3.375 GM 50 ML ONE; -PROPOFOL IV EMULSION 10 MG/ML 20 ML VIAL ONE; -SEVOFLURANE INHAL SOLN 250 ML PEN BTL ONE
--- NOTE | 2019-11-19 16:13 | Diagnostic Imaging Report ---
Exam: KUB - 2 views Indication: Renal calculi Comparison: KUB 07/20/2019 Findings: Interval removal of bilateral internal nephroureteral stents. No radiographically apparent renal calculi. Nonobstructive bowel gas pattern. No free air. No acute osseous injury. Mild degenerative changes of the spine and both hip joints. Impression: No radiographically apparent renal calculi. Signed by: Megha Mann MD on 11/19/2019 4:10 PM
== END ==
LOC: RAD 14:46
PROVIDERS: ATTEND Urology
DX: N20.0 Calculus of kidney (principal)
CPT/HCPCS: 74018

== ENCOUNTER 2020-02-12 11:33 | Observation (INO) | payer MEDICARE, OTHER ==
[2020-01-22 09:14] LABS: BASOPHILS # (AUTO) 0.1 (0.0-0.1); BASOPHILS % 1.1 % (0.0-1.0); EOSINOPHILS # (AUTO) 0.4 (0.0-0.4); EOSINOPHILS % 4.5 % (0.0-6.0); HEMATOCRIT 36.8 % (34.2-44.1); HEMOGLOBIN 11.7 g/dL (12.0-16.0); LYMPHOCYTES # (AUTO) 2.4 (1.0-3.2); LYMPHOCYTES % 27.1 % (18.0-39.1); MEAN CORPUSCULAR HEMOGLOBIN 28.9 pg (28-32); MEAN CORPUSCULAR HGB CONC 31.8 g/dL (31-35); MEAN CORPUSCULAR VOLUME 90.9 fL (81-99); MONOCYTES # (AUTO) 0.6 (0.2-0.8); MONOCYTES % 7.2 % (4.4-11.3); NEUTROPHILS # (AUTO) 5.3 (2.1-6.9); NEUTROPHILS % 59.5 % (38.7-80.0); PLATELET COUNT 284 x10e3/uL (140-360); RED BLOOD COUNT 4.05 x10e6/uL (3.6-5.1); RED CELL DISTRIBUTION WIDTH 13.2 % (11.7-14.4)
[2020-01-22 09:45] LABS: ANION GAP 16.9 mmol/L (8-16); BLOOD UREA NITROGEN 20 mg/dL (7-26); BUN/CREATININE RATIO 22 (6-25); CALCIUM 10.3 mg/dL (8.4-10.2); CARBON DIOXIDE 24 mmol/L (22-29); CHLORIDE 102 mmol/L (98-107); CREATININE, SERUM 0.92 mg/dL (0.57-1.11); EST GLOMERULAR FILTRATION RATE > 60 ML/MIN (60-); GLUCOSE 192 mg/dL (74-118); POTASSIUM 3.9 mmol/L (3.5-5.1); SODIUM 139 mmol/L (136-145)
[~2020-02-12] VITALS: Ht 172.7 cm; Wt 95.7 kg
[2020-02-12] MEDS ORDERED: GENTAMICIN 80MG/NS 100 ML 200 ML IV ONE (11:55)
[2020-02-12] MEDS ORDERED: PIPER-TAZ 3.375 GM 50 ML ONE (11:55)
[2020-02-12] MEDS ORDERED: METFORMIN HCL500 MG PO (12:01)
[2020-02-12] MEDS ORDERED: DEXTROSE 5% 250ML 250 ML IV ONE (13:11)
[2020-02-12] MEDS ORDERED: FENTANYL CITRATE/PF 100MCG/2 ML INJ ONE (13:21)
[2020-02-12] MEDS ORDERED: MIDAZOLAM HCL 2 MG/2 ML VIAL ONE (13:21)
[2020-02-12] MEDS ORDERED: IOPAMIDOL 300MG/ML 50ML INFUS..BTL IV ONE (14:00)
[2020-02-12] MEDS ORDERED: BUPIVACAINE 0.5%/EPI 30 ML SDV INJ ONE (14:00)
[2020-02-12] MEDS ORDERED: INDIGOTINDISULFONATE SODIUM 8 MG/ML AMP IJ ONE (14:00)
[2020-02-12] MEDS ORDERED: VANCOMYCIN HCL 500 MG ONE (14:00)
[2020-02-12] MEDS ORDERED: ONDANSETRON HCL INJ 2MG/ML 2ML 2 MG/ML VIAL IV PRN (16:00)
[2020-02-12] MEDS ORDERED: DIPHENHYDRAMINE HCL 25 MG CAP PO PRN (16:00)
[2020-02-12] MEDS ORDERED: ACETAMINOPHEN/CODEINE 300MG - 30MG TAB PO PRN (16:00)
[2020-02-12] MEDS ORDERED: DOCUSATE SODIUM 100 MG CAP PO SCH (17:00)
[2020-02-12] MEDS ORDERED: MEPERIDINE HCL INJ 25 MG/ML VIAL ONE (17:01)
[2020-02-12 18:13] VITALS: BP 134/59
[2020-02-12] MEDS ORDERED: PROPOFOL IV EMULSION 10 MG/ML 20 ML VIAL ONE (18:14)
[2020-02-12] MEDS ORDERED: DEXAMETHASONE SOD PHOS INJ 4 MG/ML VIAL ONE (18:14)
[2020-02-12] MEDS ORDERED: LIDOCAINE HCL 2% LOCAL INJ 5 ML SDV VIAL INJ ONE (18:14)
[2020-02-12] MEDS ORDERED: ONDANSETRON HCL INJ 2MG/ML 2ML 2 MG/ML VIAL ONE (18:14)
[2020-02-12] MEDS ORDERED: SEVOFLURANE INHAL SOLN 250 ML PEN BTL ONE (18:14)
[2020-02-12] MEDS ORDERED: EPHEDRINE SULFATE INJ 50 MG/ML VIAL ONE (18:14)
[2020-02-12 18:17] VITALS: BP 134/59
[2020-02-12] MEDS: DOCUSATE SODIUM 100 MG CAP PO SCH (18:37)
[2020-02-12] MEDS: D5.45%NS/KCL 20MEQ 1,000 ML IV SCH (18:37)
[2020-02-12 20:00] VITALS: BP 132/52
[2020-02-12 20:44] VITALS: BP 132/52
[2020-02-12] MEDS: PIPER-TAZ 3.375 GM 50 ML IV SCH (21:47)
[2020-02-12] MEDS: MORPHINE SULFATE 2 MG/ML SYR 1ML IV PRN (21:47)
[2020-02-12 23:50] VITALS: BP 121/52
[2020-02-13] VITALS (8 sets, daily range): BP systolic 116–137; BP diastolic 48–57
[2020-02-13] MEDS: D5.45%NS/KCL 20MEQ 1,000 ML IV SCH ×3 (03:06→20:48)
[2020-02-13] MEDS: PIPER-TAZ 3.375 GM 50 ML IV SCH ×3 (05:14→20:48)
[2020-02-13 06:06] LABS: BASOPHILS # (AUTO) 0.1 (0.0-0.1); BASOPHILS % 0.5 % (0.0-1.0); EOSINOPHILS % 0.1 % (0.0-6.0); HEMATOCRIT 33.6 % (34.2-44.1); HEMOGLOBIN 10.5 g/dL (12.0-16.0); LYMPHOCYTES % 13.8 % (18.0-39.1); MEAN CORPUSCULAR HEMOGLOBIN 28.6 pg (28-32); MEAN CORPUSCULAR HGB CONC 31.3 g/dL (31-35); MEAN CORPUSCULAR VOLUME 91.6 fL (81-99); MONOCYTES # (AUTO) 1.3 (0.2-0.8); MONOCYTES % 9.1 % (4.4-11.3); NEUTROPHILS % 76.2 % (38.7-80.0); PLATELET COUNT 231 x10e3/uL (140-360); RED BLOOD COUNT 3.67 x10e6/uL (3.6-5.1); RED CELL DISTRIBUTION WIDTH 13.2 % (11.7-14.4)
[2020-02-13] MEDS ORDERED: ACETAMINOPHEN 325 MG TAB PO PRN (06:30)
[2020-02-13] MEDS ORDERED: DOCUSATE SODIUM 100 MG CAP PO PRN (06:30)
[2020-02-13] MEDS ORDERED: DEXTROSE 50% SYRINGE 50 ML IV PRN (06:30)
[2020-02-13 06:37] LABS: ANION GAP 19.4 mmol/L (8-16); BLOOD UREA NITROGEN 13 mg/dL (7-26); BUN/CREATININE RATIO 15 (6-25); CARBON DIOXIDE 20 mmol/L (22-29); CHLORIDE 103 mmol/L (98-107); CREATININE, SERUM 0.84 mg/dL (0.57-1.11); EST GLOMERULAR FILTRATION RATE > 60 ML/MIN (60-); GLUCOSE 190 mg/dL (74-118); POTASSIUM 4.4 mmol/L (3.5-5.1); SODIUM 138 mmol/L (136-145)
[2020-02-13 07:12] LABS: CHOL/HDL RATIO 2.6 (3.0-3.6)
[2020-02-13] MEDS: INSULIN REGULAR, HUMAN 100 UNIT/1 ML 3ML VIAL SQ SCH ×4 (08:36→20:49)
[2020-02-13] MEDS: METOPROLOL TARTRATE 25 MG TAB PO SCH ×2 (08:43→17:44)
[2020-02-13] MEDS: DOCUSATE SODIUM 100 MG CAP PO SCH ×2 (08:43→17:43)
[2020-02-13] MEDS: SENNOSIDES 8.6 MG TAB PO SCH (08:44)
[2020-02-13] MEDS ORDERED: CRESTOR 10MG PO SCH (17:00)
[2020-02-13] MEDS ORDERED: AMLODIPINE BESYLATE 5 MG TAB PO SCH (21:00)
[2020-02-13] MEDS ORDERED: ZOLPIDEM TARTRATE 5 MG TAB PO PRN (21:00)
[2020-02-13] MEDS: CLINDAMYCIN 300MG 50 ML IV SCH (21:17)
[2020-02-14] MEDS: MORPHINE SULFATE 2 MG/ML SYR 1ML IV PRN (00:33)
[2020-02-14] MEDS: CLINDAMYCIN 300MG 50 ML IV SCH ×2 (04:53→13:30)
[2020-02-14] MEDS: PIPER-TAZ 3.375 GM 50 ML IV SCH ×2 (05:35→14:00)
[2020-02-14 05:47] VITALS: BP 129/64
[2020-02-14 06:04] LABS: BASOPHILS # (AUTO) 0.1 (0.0-0.1); BASOPHILS % 0.5 % (0.0-1.0); EOSINOPHILS # (AUTO) 0.2 (0.0-0.4); EOSINOPHILS % 2.1 % (0.0-6.0); HEMATOCRIT 32.7 % (34.2-44.1); HEMOGLOBIN 10.2 g/dL (12.0-16.0); LYMPHOCYTES # (AUTO) 2.3 (1.0-3.2); LYMPHOCYTES % 19.7 % (18.0-39.1); MEAN CORPUSCULAR HEMOGLOBIN 29.2 pg (28-32); MEAN CORPUSCULAR HGB CONC 31.2 g/dL (31-35); MEAN CORPUSCULAR VOLUME 93.7 fL (81-99); MONOCYTES # (AUTO) 1.3 (0.2-0.8); MONOCYTES % 11.5 % (4.4-11.3); NEUTROPHILS # (AUTO) 7.5 (2.1-6.9); NEUTROPHILS % 65.9 % (38.7-80.0); PLATELET COUNT 200 x10e3/uL (140-360); RED BLOOD COUNT 3.49 x10e6/uL (3.6-5.1); RED CELL DISTRIBUTION WIDTH 13.5 % (11.7-14.4)
[2020-02-14 06:32] LABS: ANION GAP 16.4 mmol/L (8-16); CALCIUM 8.9 mg/dL (8.4-10.2); CREATININE, SERUM 0.94 mg/dL (0.57-1.11); POTASSIUM 4.4 mmol/L (3.5-5.1)
[2020-02-14] MEDS: INSULIN REGULAR, HUMAN 100 UNIT/1 ML 3ML VIAL SQ SCH ×2 (07:30→11:30)
[2020-02-14 08:00] VITALS: BP 125/62
[2020-02-14 08:40] VITALS: BP 125/62
[2020-02-14] MEDS: SENNOSIDES 8.6 MG TAB PO SCH (09:00)
[2020-02-14 09:30] VITALS: BP 125/62
[2020-02-14] MEDS ORDERED: COLACE100 MG PO (11:51)
[2020-02-14 12:00] VITALS: BP 136/65
[2020-02-14] MEDS: DOCUSATE SODIUM 100 MG CAP PO SCH (12:13)
[2020-02-14] MEDS: METOPROLOL TARTRATE 25 MG TAB PO SCH (12:13)
[2020-02-14 16:00] VITALS: BP 128/57
[2020-02-14] MEDS ORDERED: LEVAQUIN500 MG PO (16:23)
[2020-02-15] MEDS ORDERED: SILVER SULFADIAZINE 50GM CREAM ONE (12:20)
== END 2020-02-14 17:35 | disposition home or self-care (01) ==
LOC: OR 11:33 → PACU V 15:53 → INTOOBSV 15:53 → MED/SURG 17:57
PROVIDERS: ADMIT Internal Medicine; ATTEND Internal Medicine
DX: N81.89 Other female genital prolapse (principal); N39.46 Mixed incontinence; N81.10 Cystocele, unspecified; R39.14 Feeling of incomplete bladder emptying; Z87.442 Personal history of urinary calculi; N13.30 Unspecified hydronephrosis; N81.6 Rectocele; N36.41 Hypermobility of urethra; N95.2 Postmenopausal atrophic vaginitis; N39.0 Urinary tract infection, site not specified; R80.9 Proteinuria, unspecified; E66.9 Obesity, unspecified; Z68.32 Body mass index [BMI] 32.0-32.9, adult; K21.9 Gastro-esophageal reflux disease without esophagitis; I10 Essential (primary) hypertension; F41.9 Anxiety disorder, unspecified; E11.9 Type 2 diabetes mellitus without complications; Z11.59 Encounter for screening for other viral diseases; Z79.84 Long term (current) use of oral hypoglycemic drugs
CPT/HCPCS: 52005; 57240; 57267; 57288; C1771; 36415; 71046; 74420; 80048; 80061; 82948; 83036; 85025; 93005; C1752; C1758; G0378; J1100; J1580; J1817; J2001; J2175; J2250; J2270; J2405; J2543; J3010; J3370; J7070; U0002